=== PATIENT | female | born 1935 | race Caucasian/White ===

== ENCOUNTER 2022-11-05 06:19 | Day surgery (SDC) | payer MEDICARE, OTHER ==
[2022-11-05] VITALS (8 sets, daily range): BP systolic 134–175; BP diastolic 76–86
[~2022-11-05] VITALS: Ht 152 cm; Wt 74.4 kg
[~2022-11-05 06:19] MED LIST: AMLO-250 PO; CARV25TA PO; DOCU250C97 PO; IBUP-1773 PO; LEVO125C4 PO; LOSA100T57 PO; PRAV40TA2 PO; TERB250T88 PO
[2022-11-05] MEDS: LACTATED RINGERS 1,000 ML IV PRN ×2 (06:29→07:15)
[2022-11-05] MEDS ORDERED: LACTATED RINGERS 1,000 ML IV PRN (06:30)
[2022-11-05] MEDS ORDERED: ceFAZolin INJECTION 1,000 MG in NS (IVPB) 50 ML IV ONE ×4 (06:30)
[2022-11-05] MEDS ORDERED: PROPOFOL INJECTION 0 ML IV ONE (07:04)
[2022-11-05] MEDS ORDERED: LIDOCAINE 1% INJ 20 ML VIAL ONE (07:15)
[2022-11-05] MEDS ORDERED: BUPIVACAINE 0.5% 30 ML (SENSORCAINE) VIAL ONE (07:15)
[2022-11-05] MEDS ORDERED: PROPOFOL INJECTION 50 ML IV ONE (08:14)
[2022-11-05] MEDS ORDERED: LIDOCAINE 1% INJ 20 ML VIAL INJ ONE (08:19)
[2022-11-05] MEDS ORDERED: proPOfol 200 MG/20 ML (DIPRIVAN) VIAL IV ONE (08:20)
[2022-11-05] MEDS ORDERED: BUPIVACAINE 0.5% 30 ML (SENSORCAINE) VIAL INJ ONE (09:04)
--- NOTE | 2022-11-05 09:07 | Progress Note-Pre Operative ---
Pre-Operative Progress Note Date of Available H&P: Nov 05, 2022 Date H&P Reviewed: Nov 05, 2022 Time H&P Reviewed: 07:35 Pre-Operative Diagnosis: Hallux Rigidus left MOLLY ISLAS DPMarcelo Nov 05, 2022 09:07
--- NOTE | 2022-11-05 09:08 | Progress Note-Post Operative ---
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
[2022-11-05] MEDS ORDERED: ACHD5005 PO (09:10)
[2022-11-05] MEDS ORDERED: CEPH500C PO (09:10)
[2022-11-05] MEDS ORDERED: HYDROcodone/APAP 5 MG/325 MG (LORTAB) TAB PO PRN (09:15)
[2022-11-05] MEDS ORDERED: LACTATED RINGERS 1,000 ML IV SCH (09:15)
--- NOTE | 2022-11-05 10:05 | Anesthesia-General Post-Op ---
MAC Patient Condition Mental Status/LOC: Same as Preop Cardiovascular: Satisfactory Nausea/Vomiting: Absent Respiratory: Satisfactory Pain: Controlled Complications: Absent Post Op Complications Complications None Follow Up Care/Instructions Patient Instructions None needed. Anesthesiology Discharge Order Discharge Order Patient is doing well, no complaints, stable vital signs, no apparent adverse anesthesia problems. No complications reported per nursing. WILLARD BEAL DO Nov 05, 2022 10:05
--- NOTE | 2022-11-05 11:22 | Diagnostic Imaging Report ---
INDICATION: Postoperative evaluation COMPARISON: None available. TECHNIQUE: 2 radiographs of the left foot dated 11/05/2022. FINDINGS: Postsurgical changes of a hindfoot arthrodesis are identified without evidence of hardware complication. Truncation of the base of the 1st digit proximal phalanx is noted, felt to be postsurgical in nature. No acute fracture or dislocation. Degenerative changes noted within the midfoot. Small plantar calcaneal enthesophyte. No suspicious radiopaque foreign body. IMPRESSION: Postsurgical changes involving the hindfoot and 1st ray without acute fracture or suspicious radiopaque foreign body. Dictated by: Dictated on workstation # [id number]
--- NOTE | 2022-11-05 19:36 | OPERATIVE REPORT ---
DATE OF SERVICE: 11/05/2022 SURGEON: Jing Guajardo DPM PREOPERATIVE DIAGNOSIS: Hallux rigidus, left. POSTOPERATIVE DIAGNOSIS: Hallux rigidus, left. PROCEDURE: Junior bunionectomy, left. WOUND CLASS: Clean. ANESTHESIA: Monitored anesthesia care. HEMOSTASIS: Pneumatic ankle tourniquet at 200 mmHg. INDICATIONS: This is an 87-year-old female presents complaining of a painful rigid left hallux joint. She has had a painful callus at the tip of the toe because of the extensive contractures she has experienced. Conservative therapy has met with unsatisfactory results and the patient is agreeable to surgical intervention after risks and complications were discussed at length. No guarantees were extended to the patient and she is willing to proceed. DESCRIPTION OF PROCEDURE: The patient was brought back to the operating table and placed in secure supine position. Appropriate timeout was performed. A 16 mL of 1:1 mixture of 1% Xylocaine and 0.5% Marcaine was injected in a Rose block. The left foot had an ankle tourniquet applied and the left foot was then prepped and draped in normal sterile manner. The left foot was then elevated, allowed to exsanguinate after which the tourniquet was inflated to 250 mmHg. Dorsal aspect of the left first metatarsophalangeal joint where a 6 cm longitudinal linear incision was created. The incision was deepened in the same plane with great care to identify and retract all vital neurovascular structures. Only necessary blood vessels were cauterized as encountered.. The incision was deepened down to the capsule where a longitudinal capsulotomy was performed. The capsular tissue was reflected medially and laterally, exposing the hypertrophic dorsal eminence to the first metatarsal head, which was resected utilizing a power sagittal saw. There was also some full thickness degeneration to the dorsal aspect of the articular cartilage, which was also removed. The head of the first metatarsal was found utilizing a power bur. Attention was then directed to the base of the proximal phalanx where the collateral ligaments were released, and an osteotomy was performed to the base of the proximal phalanx, allowing for the hallux to now dorsiflex. A forestry pilot hole was created at the base of the proximal phalanx and a 2-0 Ethibond was utilized to tag the flexor tendon to the remaining base of the proximal phalanx. Next, the medial and lateral collateral ligaments were cut as distally as possible and try to sew them into the first metatarsophalangeal joint interspace with 3-0 Vicryl. The tissue for trying to interpose capsular tissue was very fine and tore very easily. The wound was flushed with copious amounts of normal saline and closure was performed in layers. Deep closure was performed with 3-0 Vicryl, superficial with 4-0 Vicryl, skin closure with 4-0 Prolene in a horizontal mattress type stitch. Postoperative injection consisted of 8 mL of 0.5% Marcaine injected a local infusion to the surgical site. Postoperative dressing consisted of Betadine-soaked Adaptic, sterile 4 x 4's, sterile Kerlix all secured with a Coban wrap. The patient tolerated the anesthesia and procedure well and was transported from the operating room to the recovery area with vital signs stable and vascular status intact to all digits of the left foot. She was given postoperative instructions. She is going to be in a surgical splint shoe with a walker to help mitigate discomfort to the left foot. She was given a prescription for Keflex as well as Vicodin. She already has tramadol at home. She indicates that she had an intolerance with the GI upset to CODEINE some time in the remote past. She has not tried it recently. Job ID: [id number] DocumentID: [id number] Dictated Date: 11/05/2022 09:19:11 [employer]anger [employer] Pain[employer] Date: 11/05/2022 19:34:00 Dictated By: VIN KEITH
== END 2022-11-05 12:20 | disposition home or self-care (01) ==
LOC: SDC 06:19
PROVIDERS: ATTEND Podiatrist Foot & Ankle Surgery
DX: M20.22 Hallux rigidus, left foot (principal); M19.072 Primary osteoarthritis, left ankle and foot; I70.213 Atherosclerosis of native arteries of extremities with intermittent claudication, bilateral legs; I12.9 Hypertensive chronic kidney disease with stage 1 through stage 4 chronic kidney disease, or unspecified chronic kidney disease; E03.9 Hypothyroidism, unspecified; H35.3212 Exudative age-related macular degeneration, right eye, with inactive choroidal neovascularization; N18.31 Chronic kidney disease, stage 3a
CPT/HCPCS: 73620; 87081